=== PATIENT | female | born 1990 | race Caucasian/White ===

== ENCOUNTER → 2020-09-12 | Outpatient (CLI) | payer OTHER ==
--- NOTE | 2020-09-12 17:46 | RAD ---
INDICATION: Reason: RIGHT KNEE PAIN / Spl. Instructions: / History: COMPARISON: None. IMPRESSION: Right knee: 2 views obtained. Mild degenerative changes with early joint space narrowing and early os teophyte formation. No evidence of acute fracture or dislocation. Edema of Hoffa's fat pad small join t effusion. Electronically signed by: Ethan Keys MD (09/12/2020 5:44 PM) [id number]
== END ==
LOC: RAD 11:55
PROVIDERS: ATTEND Family Medicine
DX: Z02.71 Encounter for disability determination (principal); M17.11 Unilateral primary osteoarthritis, right knee; M25.461 Effusion, right knee; M25.761 Osteophyte, right knee; M79.4 Hypertrophy of (infrapatellar) fat pad
CPT/HCPCS: 73560